=== PATIENT | male | born 1955 | race Caucasian/White ===

== ENCOUNTER → 2016-09-24 | Outpatient (CLI) | payer BC ==
--- NOTE | 2016-09-24 15:42 | DI ---
Indication: ITS.REASON: M54.5 LOW BACK PAIN and left leg pain, gradually worsening PROCEDURE: MRI LUMBAR SPINE W/O CONTRAST: Encounter: Initial Comparison: None Technique: Multiplanar multisequence MR imaging of the lumbar spine was performed without contrast. Findings: Alignment of the lumbar spine shows bilateral L3 spondylolysis and grade 1 spondylolisthesis of L3 on L4. The vertebral body heights are maintained. No acute fracture seen. Small Schmorl's nodes in the lower thoracic spine. The paraspinal soft tissues are within normal limits. Segmental analysis: L1-L2: Normal L2-L3: Normal L3-L4: Degenerative facet hypertrophy combined with the listhesis and a central disk protrusion causes mild central canal stenosis. There is severe bilateral neural foraminal stenosis with disk material severely compressing the exiting left L3 nerve root with some compression of the exiting right L3 nerve root as well. L4-L5: Small annular disk bulge with mild degenerative facet change contributing to mild central canal stenosis. Mild to moderate right and mild left neural foraminal stenosis. L5-S1: Normal Impression: Bilateral L3 spondylolysis with spondylolisthesis resulting in severe bilateral neural foraminal stenosis and nerve root impingement, worst on the left. .
== END ==
LOC: IMA 14:01
PROVIDERS: ATTEND Family Medicine
DX: M43.16 Spondylolisthesis, lumbar region (principal); M48.06 Spinal stenosis, lumbar region

== ENCOUNTER → 2016-10-09 | Outpatient (CLI) | payer BC ==
--- NOTE | 2016-10-09 16:39 | DI ---
Indication: ITS.REASON: M17.1 OSTEOARTHRITIS OF RIGHT KNEE PROCEDURE: KNEE RIGHT 3 VIEWS: Encounter: Initial Comparison: None Findings: No acute fracture or dislocation. Severe medial compartment joint space narrowing. Extensive meniscal chondrocalcinosis with tricompartmental osteophyte formation. Loose bodies in the posterior joint recess. Chronic appearing mild deformity of the medial tibial plateau. Impression: Severe osteoarthritis. .
== END ==
LOC: IMA 14:37
PROVIDERS: ATTEND Family Medicine
DX: M17.11 Unilateral primary osteoarthritis, right knee (principal)